=== PATIENT | male | born 1960 | race American Indian/Alaskan Native ===

== ENCOUNTER 2017-03-24 22:38 | Emergency (ER) | payer MEDICARE ==
[2017-03-24 23:04] LABS: Red Blood Count 3.91 M/mm3 (3.65-5.03); White Blood Count 4.2 K/mm3 (4.5-11.0)
[2017-03-24 23:05] LABS: Hematocrit 42.3 % (35.5-45.6); Hemoglobin 13.9 gm/dl (11.8-15.2); Mean Corpuscular HGB Conc 33 % (32-34); Mean Corpuscular Hemoglobin 36 pg (28-32); Mean Corpuscular Volume 108 fl (84-94); Mean Platelet Volume 8.6 fl (6-12); Platelet Count 216 K/mm3 (140-440); Red Cell Distribution Width 14.5 % (13.2-15.2)
[2017-03-24 23:06] LABS: Basophils % (Auto) 0.4 % (0.0-1.8); Eosinophils % (Auto) 1.8 % (0.0-4.3)
[2017-03-24 23:15] LABS: INR 1.02 (0.87-1.13); Partial Thromboplastin Time 27.2 Sec. (24.2-36.6)
[2017-03-24 23:18] LABS: Creatine Kinase MB 1.4 ng/mL (0.0-4.0)
[2017-03-24 23:19] LABS: Creatine Kinase 113 units/L (55-170)
--- NOTE | 2017-03-24 23:41 | Cat Scan Report ---
FINAL REPORT EXAM: CT HEAD/BRAIN WO CON HISTORY: rt facial droop, rt leg weakness slow speech TECHNIQUE: CT was performed from the foramen magnum through the vertex in the axial plane without the use of intravenous contrast. PRIORS: 02/24/2014 FINDINGS: There is a new multilobular low-attenuation lesion consistent with a cyst or mass centered in the left caudate and putamen with also involving the medial inferior left frontal lobe. There mass-effect on the frontal horn of the lateral ventricle. There are no abnormal extra-axial fluid collections. There is no evidence of acute intracranial hemorrhage or infarct. The skull and orbits are unremarkable. The visualized paranasal sinuses are clear. IMPRESSION: There is a new multilocular low-attenuation lesion consistent with a cyst or mass in the left basal ganglia and medial frontal lobe as described above. Recommend further evaluation with MRI without and with contrast.
[2017-03-25] MEDS ORDERED: BABY ASPIRIN PO ONE (02:16)
[2017-03-25] MEDS ORDERED: TYLENOL PO ONE (02:16)
--- NOTE | 2017-03-25 02:20 | Emergency Department Report ---
HPI - General Chief Complaint: Neuro Symptoms/Deficit Time Seen by Provider: 03/25/17 02:01 - HPI HPI: The patient is a 57 yo male who presents for evaluation of strokelike symptoms. The patient is accompanied by family member whom reports that for the past 2 days the patient has exhibited right lateralizing weakness of the arms and legs , constant, severe, and accompanied with difficulty speaking since this afternoon, greater than 6 hours ago. The patient denies trauma to the head, headache, neck pain or stiffness, chest pain, dyspnea, paresthesias, or other neurological deficit. ED Past Medical Hx - Past Medical History Previous Medical History?: Yes Hx Hypertension: Yes Hx CVA: Yes Hx Congestive Heart Failure: No Hx Diabetes: No Hx GERD: Yes Hx Asthma: No Hx Tuberculosis: Yes Hx HIV: Yes (last CD4 count unknown) Additional medical history: High Cholesterol; TIAs - Surgical History Past Surgical History?: Yes Additional Surgical History: Esophagus Stretched - Social History Smoking Status: Never Smoker Substance Use Type: Alcohol - Medications Home Medications: Home Medications Medication Instructions Recorded Confirmed Last Taken Type Abacavir/Lamivudine/Zidovudine 300 mg PO DAILY 07/22/15 03/24/17 03/24/17 History [Trizivir TAB] Aspirin EC 325 mg PO DAILY 07/22/15 03/24/17 03/24/17 History Atorvastatin Calcium [Lipitor] 20 1000units PO DAILY 07/22/15 03/24/17 03/24/17 History Carvedilol [Coreg] 25 mg PO BID 07/22/15 03/24/17 03/24/17 History Clopidogrel [Plavix] 75 mg PO QDAY 07/22/15 03/24/17 03/24/17 History Diphenhydramine HCl [Benadryl 25 mg PO Q6HR PRN #30 tablet 07/22/15 03/24/17 Rx Allergy TAB] Ezetimibe [Zetia] 10 mg PO DAILY 07/22/15 03/24/17 03/24/17 History Lisinopril [Zestril TAB] 10 mg PO QDAY 07/22/15 03/24/17 03/24/17 History Zantac 150 MG TAB 150 mg PO DAILY 07/22/15 03/24/17 03/24/17 History methylPREDNISolone [Medrol Dose 1 dose PO DAILY #1 pack 07/22/15 03/24/17 Rx [facility]] ED Review of Systems ROS: Stated complaint: POSS STROKE Other details as noted in HPI Constitutional: denies: fever ENT: denies: throat or neck pain Respiratory: denies: cough, shortness of breath Cardiovascular: denies: chest pain Endocrine: denies unexplained weight loss or gain Gastrointestinal: denies: abdominal pain, nausea Genitourinary: denies: dysuria Musculoskeletal: denies: leg swelling Skin: denies: rash Neurological: Reports speech change and weakness denies: headache Hematological/Lymphatic: denies: easy bleeding or easy bruising Psych: denies sadness or hopelessness Physical Exam - Physical Exam Vital Signs: Vital Signs 03/24/17 03/24/17 03/24/17 22:53 23:37 23:43 Temperature 98.3 F 98.3 F Pulse Rate 57 L 58 L Respiratory 16 12 Rate Blood Pressure 116/77 110/65 O2 Sat by Pulse 100 99 Oximetry 03/24/17 23:44 Temperature Pulse Rate Respiratory 18 Rate Blood Pressure O2 Sat by Pulse 98 Oximetry Physical Exam: General: well-nourished, well-developed, no acute distress Head: Normocephalic, atraumatic Eyes: normal sclera ENT: Mucous membranes are pink and moist Neck: trachea midline, neck supple, No neck stiffness, no cervical adenopathy Respiratory: Breath sounds equal bilaterally, no wheezing, rales, or rhonchi Cardio: S1 and S2 present, no murmurs, rubs, gallops, capillary refill is brisk Abdomen: Normoactive bowel sounds, soft abdomen, no rigidity, no guarding or rebound tenderness Musc: No pitting edema Skin: No rash Neuro: AOx3, rt facial drooping (baseline per ), modertely slurred speech, right arm and leg weakness present, diminished right arm of a reflexes, no sensation deficits, unable to assess coordination and right arm and leg Psych: Normal affect ED Course Vital Signs 03/24/17 03/24/17 03/24/17 22:53 23:37 23:43 Temperature 98.3 F 98.3 F Pulse Rate 57 L 58 L Respiratory 16 12 Rate Blood Pressure 116/77 110/65 O2 Sat by Pulse 100 99 Oximetry 03/24/17 23:44 Temperature Pulse Rate Respiratory 18 Rate Blood Pressure O2 Sat by Pulse 98 Oximetry ED Medical Decision Making - Lab Data Result diagrams: 03/24/17 22:50 - Medical Decision Making The patient was seen and examined by myself. The patient is placed on a polysomnograph tech and continuous pulse ox. On initial evaluation, the patient was found to be in no distress. Evaluation orders were placed. The patient is given a tablet of Tylenol. Lab results are unrevealing. CT scan the head reveals a likely cyst versus mass, and is negative for acute hemorrhage or infarct. The on-call transfer center at the [facility] is contacted. The on-call internal medicine physician agrees to accept the patient for transfer. The patient is transferred in guarded condition. Critical care attestation.: If time is entered above; I have spent that time in minutes in the direct care of this critically ill patient, excluding procedure time. ED Disposition Clinical Impression: Cerebral mass CVA (cerebral vascular accident) Qualifiers: CVA mechanism: unspecified Qualified Code(s): I63.9 - Cerebral infarction, unspecified Disposition: DC/TX ANOTHER TYPE HEALTHCARE Is pt being admited?: No Does the pt Need Aspirin: No Condition: Fair Referrals: PRIMARY CARE, [Primary Care Provider] - 3-5 Days Time of Disposition: 02:18
[2017-03-25 06:08] VITALS: BP 103/60
== END 2017-03-25 06:28 | disposition other institution (70) ==
LOC: ED 22:38
DX: I63.9 Cerebral infarction, unspecified (principal); G93.89 Other specified disorders of brain; I10 Essential (primary) hypertension; K21.9 Gastro-esophageal reflux disease without esophagitis; E78.00 Pure hypercholesterolemia, unspecified; Z21 Asymptomatic human immunodeficiency virus [HIV] infection status; Z79.82 Long term (current) use of aspirin
CPT/HCPCS: 36415; 70450; 82550; 82553; 82962; 84484; 85025; 85610; 85670; 85730; 93005; 93010

== ENCOUNTER 2022-03-11 06:36 | Day surgery (SDC) | payer MEDICARE ==
[2022-03-11] MEDS ORDERED: ceFAZolin/STERILE WATER 2 GM/20 ML SYRINGE IV NR (09:00)
[2022-03-11] MEDS ORDERED: LACTATED RINGERS 1,000 ML IV SCH (09:00)
[2022-03-11] MEDS ORDERED: ceFAZolin/Water 2 GM/20 ML 2 GM/20 ML SYRINGE IV ONE (09:01)
--- NOTE | 2022-03-11 09:18 | Anesthesia Day of Surgery ---
Anesthesia Day of Surgery - Day of Surgery Patient Examined: Yes Patient H&P Reviewed: Yes Patient is NPO: Yes Beta Blockers: No (Self-d/c'd last year)
--- NOTE | 2022-03-11 09:20 | Anesthesia Consultation ---
Anesthesia Consult and Med Hx Date of service: 03/11/22 - Airway Anesthetic Teeth Evaluation: Chipped ROM Head & Neck: Adequate Mental/Hyoid Distance: Adequate Mallampati Class: Class II Intubation Access Assessment: Good - Pre-Operative Health Status ASA Pre-Surgery Classification: ASA3 Proposed Anesthetic Plan: General - Pulmonary Hx Asthma: No Hx Pneumonia: Yes - Cardiovascular System Hx Hypertension: Yes - Central Nervous System CVA: Yes - Gastrointestinal Hx Gastroesophageal Reflux Disease: No - Endocrine Hx End Stage Renal Disease: No - Hematic Hx Sickle Cell Disease: No - Other Systems Hx Alcohol Use: Yes Hx Obesity: No - Additional Comments Anesthesia Medical History Comments: HIV+
[2022-03-11] MEDS ORDERED: ONDANSETRON 4 MG/2 ML INJ IV PRN (09:30)
[2022-03-11] MEDS ORDERED: HYDROmorphone 1 MG/1 ML INJ IV PRN ×2 (09:30)
[2022-03-11] MEDS ORDERED: propofoL 200 MG/20 ML VIAL IV ONE (09:42)
[2022-03-11] MEDS ORDERED: LIDOCAINE MPF (2%) 20 MG/1 ML VIAL 5 ML ONE (09:42)
[2022-03-11] MEDS ORDERED: HYDROmorphone 1 MG/1 ML INJ ONE (09:42)
--- NOTE | 2022-03-11 11:05 | Ultrasound Report ---
Transrectal Ultrasound HISTORY: ELEVATED PSA. TECHNIQUE: Grayscale and color imaging performed. COMPARISON: None IMPRESSION: Prostate volume is 48.9 mL. The prostate is heterogeneous in appearance. Please refer to operative note for complete details. Signer Name: Luis Antonio Hoang MD Signed: 03/11/2022 10:58 AM Workstation Name: [id number]
--- NOTE | 2022-03-11 12:21 | Operative Report ---
DATE OF SURGERY: 03/11/2022 DATE AND TIME OF PROCEDURE: 03/11/2022 at approximately 10:15 a.m. PREOPERATIVE DIAGNOSIS: Elevated PSA. POSTOPERATIVE DIAGNOSIS: Elevated PSA. OPERATIVE PROCEDURE: Transrectal ultrasound of the prostate with ultrasound-guided biopsies. ATTENDING: Edward Ernst MD VEGETABLE PREPARER: None. ANESTHESIA: General. ESTIMATED BLOOD LOSS: 15 mL DRAINS: None. COMPLICATIONS: None. SPECIMENS: Prostate needle biopsies. INDICATIONS FOR PROCEDURE: The patient is a 62-year-old man with markedly elevated PSA. He presents today for biopsy . DESCRIPTION OF PROCEDURE IN DETAIL: After induction of suitable anesthesia and proper positioning and preparation in the dorsal lithotomy position, an ultrasound probe was inserted per rectum. Diagnostic ultrasound of the prostate was performed. The patient had approximately 49 gram prostate. The prostate appeared markedly abnormal. The peripheral zone was filled with hypoechoic areas concerning for prostate cancer. Using ultrasound guidance, sequential sextant biopsies were taken in the usual manner. The biopsy specimens appeared grossly adequate. Once all biopsies were complete, the ultrasound probe was removed and rectal pressure was applied. The patient was then awakened from anesthesia and transported to the recovery room in stable condition. He tolerated the procedure well. He will return in approximately 7-10 days for pathology review. TID: [id number] RECEIPT: [id number] DANIEL/NAVEEN
--- NOTE | 2022-03-11 14:22 | Post Anesthesia Evaluation ---
- Post Anesthesia Evaluation Patient Participated: Yes Airway Patent: Yes Stable Respiratory Function: Yes Nausea/Vomiting: No Temp > 96.8F: Yes Pain Manageable: Yes Adequeate Hydration: Yes Anesthesia Complications: No Block Receding Appropriately: Not Applicable Patient on Ventilator: No
[2022-03-11 15:26] VITALS: BP 147/87
== END 2022-03-11 11:10 | disposition home or self-care (01) ==
LOC: OR 06:36
PROVIDERS: ATTEND Urology
DX: R97.20 Elevated prostate specific antigen [PSA] (principal); E78.00 Pure hypercholesterolemia, unspecified; I10 Essential (primary) hypertension; F10.10 Alcohol abuse, uncomplicated; K21.9 Gastro-esophageal reflux disease without esophagitis; B20 Human immunodeficiency virus [HIV] disease; Z79.899 Other long term (current) drug therapy; Z88.8 Allergy status to other drugs, medicaments and biological substances; Z87.01 Personal history of pneumonia (recurrent); Z72.89 Other problems related to lifestyle; Z98.890 Other specified postprocedural states; Z86.73 Personal history of transient ischemic attack (TIA), and cerebral infarction without residual deficits
CPT/HCPCS: 55700; 76872; 88305; J0690; J1170; J2704; J3490; J7120